=== PATIENT | female | born 1995 | race African-American/Black ===

== ENCOUNTER 2019-05-29 08:48 | Emergency (ER) | payer SELFPAY ==
[2019-05-29 08:55] VITALS: BP 145/83; RESP 16; TEMP 36.6; O2SAT 99
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
[2019-05-29] MEDS: Acetaminophen 500 MG TAB 1000 MG PO (09:48)
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
[2019-05-29 10:50] LABS: Bilirubin Small (Negative); Blood Negative (Negative); Clarity Clear (Clear); Glucose Negative (Negative); Ketones 40 mg/dL (Negative); Leukocyte Esterase Negative (Negative); Nitrite Negative (Negative); Urobilinogen 0.2 EU/dL (Up TO 0.2); pH 6.5 (5-8)
== END 2019-05-29 11:41 | disposition home or self-care (01) ==
PROVIDERS: Emergency Provider Physician Assistant
DX: M54.2 Cervicalgia (principal); M54.5 Low back pain; M79.662 Pain in left lower leg; S39.012A Strain of muscle, fascia and tendon of lower back, initial encounter; V43.62XA Car passenger injured in collision with other type car in traffic accident, initial encounter
CPT/HCPCS: 99284; 72050; 72072; 72100; 81003